=== PATIENT | female | born 1975 | race Caucasian/White ===

== ENCOUNTER 2025-01-18 11:51 | Emergency (ER) | payer OTHER, SELFPAY ==
[2025-01-18 11:53] VITALS: BP 192/98
[2025-01-18 12:44] VITALS: BP 155/90
[2025-01-18 12:45] VITALS: BMI 26.6
[2025-01-18 12:47] VITALS: BP 155/90
--- NOTE | 2025-01-18 14:10 | ED.GENMED ---
History of Present Illness
General
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
Source: patient
Time Seen by Provider: 01/18/25 13:00
Nursing documentation reviewed up to this point in time: agreed with
History of Present Illness
History of Present Illness:
49 yo female w no significant PMHX presents with history of a 'large lump' just inside vagina no pain. During her morning shower, described the sensation as a bulging entity, comparable to a bubble, located internally. This bulging sensation became
more prominent after using the toilet but was somewhat relieved with self-manipulation pushing in with her fingers. She denies lower abdominal pain, no difficulty urinating or moving bowels. No drainage from the site was observed by the patient.
Past History
Past History
ED Past Medical History: None and Other (Hypertension, sinus disease)
ED Past Surgical History: None
Social History
Tobacco: Non-smoker
Alcohol: None
Personal:
Living: with family
Family History
Family History: Negative Diabetes, Hypertension or Early CAD
Review of Systems
Review of Systems
Allergies reviewed?: Yes
All Other Systems: ROS reviewed and negative except as documented in HPI and ROS
Phy Exam
Physical Exam
Physical Exam:
GENERAL: No acute distress. A&Ox3.
CONSTITUTIONAL: Afebrile.
RESPIRATORY: Regular respirations, nonlabored, lungs clear.
CARDIOVASCULAR: Regular rate and rhythm, no murmurs, no rubs.
GI: Soft, nontender, normal BS
: normal speculum exam. No palpable masses, no tenderness to palpation
MUSCULOSKELETAL: Moves with ease. Well perfused.
SKIN: Warm, dry, pink
PSYCH: Normal mood and affect. Well kept, interactive and appropriate
NEUROLOGIC: Awake, alert and oriented. No focal neurological deficits
Genitourinary Exam Female
Exam Female: no adnexal tenderness, no bleeding, no CMT, no mass and no vaginal discharge
Vaginal Exam: normal
Uterus: normal size (no prolapse )
Course
Vital Signs
Initial and Last Documented VS:
Initial Vital Signs
Temp Pulse Resp BP Pulse Ox
98.3 F 102 18 192/98 98
01/18/25 11:53 01/18/25 11:53 01/18/25 11:53 01/18/25 11:53 01/18/25 11:53
Last Documented Vital Signs
Temp Pulse Resp BP Pulse Ox
98.6 F 92 20 155/90 97
01/18/25 12:47 01/18/25 12:47 01/18/25 12:47 01/18/25 12:47 01/18/25 14:12
MDM/Problems Addressed
Differential Diagnosis Includes:
Bartholin's cyst, prolapse of uterus, bladder prolapse
MDM/Problems Addressed:
49 yo female w no significant PMHX presents with history of a 'large lump' just inside vagina no pain. During her morning shower, described the sensation as a bulging entity, comparable to a bubble, located internally. This bulging sensation became
more prominent after using the toilet but was somewhat relieved with self-manipulation pushing in with her fingers. She denies lower abdominal pain, no difficulty urinating or moving bowels. No drainage from the site was observed by the patient.
NAD
Normal vaginal exam
Referred to Uro/TOBACCO CHECKOUT CLERK or TOBACCO CHECKOUT CLERK whichever can see her sooner for possible uterine/bladder prolapse
Isntructed patient how to reduce the prolapse and she is comfortable with it.
*Pulse Oximetry
SaO2: 97
Oxygen Mode of Delivery: Room air
Patient hypoxic: not evaluated
*Critical Care Note
Total Time (30-74mins, 75-104mins- exclusive of procedures): Not Applicable
ED Attending Note
-
Portions of this chart may have been created with voice recognition software.� Occasional wrong word or��sound alike� substitutions may have occurred due to the inherent limitations of voice recognition software.
Discharge Plan
Departure
Patient Disposition: Home (Routine Discharge)
Date of Disposition: 01/18/25
Time of Disposition: 14:23
Patient with high blood pressure during this ER visit?: No
Condition: Good
Discharge Problem:
Pelvic prolapse
Instructions: Pelvic Floor Dysfunction (DC), Pelvic organ prolapse
Prescriptions:
No Action
No Current Medications
0
Referrals:
Giana Miranda DO [Active, Urology] - Next open appointment
Herminia Qureshi DO [Family Provider, Family Practice]
Donna Barroso MD [Active, Gynecology] - Next open appointment
Activity Restrictions/Additional Instructions:
As we discussed, your vaginal exam is normal.
You MAY have experienced a uterine prolapse.
Call and make appointment with the TOBACCO CHECKOUT CLERK doctor or Dr. Miranda Uro/Senior Label Specialist
If it occurs again, lay down and gently push it back in.
Interventions
Interventions:
*Risk Screen - Suicide Last Done: 01/18/25 11:52
*General Assessment Last Done: 01/18/25 11:53
*Neglect/Abuse Screening Last Done: 01/18/25 11:53
*ED COVID-19 Vaccine History Last Done: 01/18/25 12:47
*ED Influenza Vaccine History Last Done: 01/18/25 12:47
[facility] Risk Assessment Tool Last Done: 01/18/25 12:47
*Nursing Disposition Last Done: 01/18/25 14:48
ED-Female Genitourinary Assessment Last Done: 01/18/25 12:47
Discharge Date and Time
Discharge Date/Time: 01/18/25 14:49
Print Language: [id number]
== END 2025-01-18 14:49 | disposition home or self-care (01) ==
LOC: EMR 11:51
PROVIDERS: EMERGENCY PHYSICIAN Emergency Medicine; FAMILY PHYSICIAN Family Medicine
DX: N81.89 Other female genital prolapse (principal); I10 Essential (primary) hypertension; Z82.49 Family history of ischemic heart disease and other diseases of the circulatory system
CPT/HCPCS: 99282